=== PATIENT | male | born 1980 ===

== ENCOUNTER 2024-03-31 08:11 | Outpatient (CLI) | payer OTHER ==
--- NOTE | 2024-03-31 14:06 | MRI Report ---
PROCEDURE: Hand LT WO INDICATIONS: L HAND PAIN TECHNIQUE: Noncontrast coronal T1 spin echo and T2 fast spin echo with fat saturation, axial proton density fast spin echo and T2 fast spin echo with fat saturation, sagittal T1 spin echo and STIR through the hand and fingers. COMPARISON: None. FINDINGS: Image quality: Excellent. Bones: The bones are normally aligned, without marrow contusions or fractures. No intra-osseous les ions. Interphalangeal joint(s): The accessory and proper collateral ligaments appear intact. The volar pl ate demonstrates normal morphology. The extensor central slips appear intact on sagittal images. Metacarpophalangeal joint(s): The accessory and proper collateral ligaments appear intact, as well a s the volar plate and adjacent deep transverse metacarpal ligaments. Thickened radial sagittal band o f fourth MCP joint extensor pablo concerning for sprain/low-grade partial thickness tear. Extensor apparatus: The central slips insert normally on the middle phalangeal base. The conjoint a nd terminal tendons insert normally on the distal phalangeal bases. More proximal portions of the ex tensor tendons also appear normal. Flexor apparatus: The flexor digitorum superficialis and profundus tendons both appear thickened gregor ng volar aspect of fourth MCP joint extending to the level of fourth PIP joint. All annular and cruci form pulleys appear intact, without adjacent soft tissue edema. Soft tissues: Visualized muscles demonstrate normal bulk and internal signal. No intramuscular mass es identified. No ganglion cysts. IMPRESSION: 1. No marrow edema. No fracture or dislocation. No suspicious intraosseous lesion. 2. Suggestion of low-grade sprain/partial thickness tear involving radial sagittal band fourth MCP alexa int extensor pablo. The medial and lateral collateral ligaments of fourth MCP joint are intact. 3. Suggestion of tendinosis involving flexor tendons of the fourth digit at the level of fourth MCP j oint, fourth proximal phalanx and fourth PIP joint. No full-thickness tendon rupture. Reviewed by: Aaron Olson MD on 03/31/2024 2:05 PM PDT Approved by: Aaron Olson MD on 03/31/2024 2:05 PM PDT Station ID: [id number]
== END 2024-03-31 08:12 | disposition home or self-care (01) ==
LOC: DI 08:11
PROVIDERS: ATTEND Nurse Practitioner Family
DX: M79.642 Pain in left hand (principal); M79.89 Other specified soft tissue disorders; R93.6 Abnormal findings on diagnostic imaging of limbs

== ENCOUNTER 2024-06-09 08:39 | Day surgery (SDC) | payer OTHER ==
[2024-06-09] MEDS: LACTATED RINGERS 1,000 ML IV ONE (08:58)
--- NOTE | 2024-06-09 09:48 | ANESTHESIA ---
Pre-Anesthesia VS, & Labs - Diagnosis screening exam - Procedure colonoscopy Vital Signs: Temp Pulse Resp BP Pulse Ox O2 Flow Rate 36.2 C L 46 L 18 107/74 99 06/09/24 08:59 06/09/24 08:59 06/09/24 08:59 06/09/24 08:59 06/09/24 08:59 Height: 5 ft 10 in Weight (kg): 80.5 kg Body Mass Index: 25.4 BMI Classification: Overweight - NPO >8 hours Home Medications and Allergies Home Medications: Ambulatory Orders Atorvastatin [Lipitor] 10 mg PO DAILY 06/08/24 Hyoscyamine [Levsin] 0.125 mg SL DAILY 06/09/24 Atorvastatin [Lipitor] 10 mg PO DAILY 06/08/24 Hyoscyamine [Levsin] 0.125 mg SL DAILY 06/09/24 Allergies/Adverse Reactions: Allergies Allergy/AdvReac Type Severity Reaction Status Date / Time No Known Drug Allergies Allergy Verified 06/09/24 09:08 Anes History & Medical History - Medical History Cardiovascular: reports: High cholesterol Pulmonary: reports: None Gastrointestinal: reports: GERD, Other Urinary: reports: None Neuro: reports: None Musculoskeletal: reports: None Endocrine/Autoimmune: reports: None Smoking Status: Never smoker Psychosocial: reports: No issues indicated History of Cancer?: No - Surgical History Orthopedic: reports: Shoulder arthroplasty Exam General: Alert, Oriented x3, Cooperative, No acute distress Dental: WNL Mouth Openin Fingerbreadth Neck Mobility: Normal Mallampati classification: II Thyromental Distance: 4-6 cm Mental/Cognitive Status: Alert/Oriented X3, Normal for patient Plan Anesthesia Type: General, Total IV Consent for Procedure(s) Verified and Reviewed: Yes Code Status: Attempt Resuscitation ASA classification: 2-Mild systemic disease Is this case an emergency?: No
--- NOTE | 2024-06-09 09:58 | HISTORY & PHYSICAL EXAMINATION ---
Chief Complaint - Chief Complaint Chief Complaint: here for colonoscopy History of Present Illness - History Obtained From Records Reviewed: yes History obtained from: pt Exam Limitations: none - History of Present Illness HPI Comment/Other: seen a couple months ago to schedule colon cancer screening. since that time he has seen a mortgage manager for hx looser stool/ IBS. he states his mortgage manager has recommended biopsies. History - Past Medical History Cardiovascular: reports: High cholesterol Respiratory: reports: None Neuro: reports: None Endocrine/Autoimmune: reports: None GI: reports: GERD, Other : reports: None Psych: reports: None Musculoskeletal: reports: None MRSA Hx?: No - Past Surgical History Ortho: reports: Shoulder arthroplasty Meds/Allgy - Home Medications Home Medications: Ambulatory Orders Medication Instructions Recorded Confirmed Atorvastatin [Lipitor] 10 mg PO DAILY 06/08/24 06/08/24 Hyoscyamine [Levsin] 0.125 mg SL DAILY 06/09/24 06/09/24 - Allergies Allergies/Adverse Reactions: Allergies Allergy/AdvReac Type Severity Reaction Status Date / Time No Known Drug Allergies Allergy Verified 06/09/24 09:08 Review of Systems - Other Findings Other Findings: 10 pt ros as above otherwise unremarkable Exam - Vital Signs Vital Signs: Vital Signs x48h Temp Pulse Resp BP Pulse Ox 06/09/24 08:59 36.2 C L 46 L 18 107/74 99 - Physical Exam General Appearance: positive: No acute distress, Alert Eyes Bilateral: positive: PERRL, EOMI ENT: positive: No signs of dehydration Neck: positive: No JVD Respiratory: positive: No respiratory distress Cardiovascular: positive: Regular rate & rhythm Abdomen: positive: No distention Neurologic/Psychiatric: positive: Oriented x3 Conclusion/Plan - Problem List (1) Colon cancer screening Conclusion/Plan: and random bxs to rule out colitis. parq held and consent obtained
[2024-06-09] MEDS ORDERED: PROPOFOL 500 MG/50 ML 500 MG/50 ML VIAL ONE (10:04)
[2024-06-09] MEDS ORDERED: MIDAZOLAM 2 MG/2 ML VIAL ONE (10:12)
[2024-06-09] MEDS: LACTATED RINGERS 600 ML IV ONE ×2 (10:35→11:47)
[2024-06-09 10:44] VITALS: O2SAT 100
[2024-06-09 11:07] VITALS: BP 116/71
--- NOTE | 2024-06-09 14:03 | ANESTHESIA POST OP EVALUATION ---
Anesthesia Post Eval - Post Anesthesia Eval Vitals: Last Vital Signs Temp 36.4 C L 06/09/24 10:56 Pulse 56 L 06/09/24 10:56 Resp 16 06/09/24 10:56 BP 116/71 06/09/24 10:56 Pulse Ox 100 06/09/24 10:56 O2 Flow Rate CV Function Including HR & BP: Stable Pain Control: Satisfactory Nausea & Vomiting: Negative Mental Status: Baseline Respiratory Status: Airway Patent Hydration Status: Satisfactory Anesthesia Complications: None
== END 2024-06-09 08:40 | disposition home or self-care (01) ==
LOC: SDS 08:39
PROVIDERS: ATTEND Surgery
PROC: 0DBB8ZX Excision of Ileum, Via Natural or Artificial Opening Endoscopic, Diagnostic (ICD-10-PCS; 2024-06-09)
PROC: 0DBM8ZX Excision of Descending Colon, Via Natural or Artificial Opening Endoscopic, Diagnostic (ICD-10-PCS; 2024-06-09)
PROC: 0DBK8ZX Excision of Ascending Colon, Via Natural or Artificial Opening Endoscopic, Diagnostic (ICD-10-PCS; principal; 2024-06-09 09:30)
DX: K52.9 Noninfective gastroenteritis and colitis, unspecified (principal)
CPT/HCPCS: 45380; J7120